=== PATIENT | male | born 1955 | race Caucasian/White ===

== ENCOUNTER 2017-11-15 16:34 | Inpatient (IN) | payer BC ==
[~2017-11-15] VITALS: Ht 180.3 cm; Wt 81.6 kg
[2017-11-15 16:51] VITALS: BP_SYST 142
[2017-11-15 17:36] LABS: BASOPHILS % (AUTO) 0.4 % (0.0-2.0); EOSINOPHILS % (AUTO) 0.2 % (0.0-4.0); HEMOGLOBIN 15.2 g/dL (14.0-18.0); LYMPHOCYTES # (AUTO) 1.9 K/uL (1.0-5.5); LYMPHOCYTES % (AUTO) 19.2 % (20.5-51.5); MEAN CORPUSCULAR HEMOGLOBIN 31 pg (27-31); MEAN CORPUSCULAR HGB CONC 34 % (32-36); MEAN CORPUSCULAR VOLUME 91 fL (79.0-98.0); MONOCYTES # (AUTO) 0.8 K/uL (0.0-1.0); MONOCYTES % (AUTO) 8.3 % (1.7-9.3); NEUTROPHILS # (AUTO) 6.9 K/uL (1.8-7.7); NEUTROPHILS % (AUTO) 71.9 % (40.0-70.0); PLATELET COUNT (AUTO) 279 K/uL (130-430); RED BLOOD CELL COUNT(AUTO) 4.97 MIL/uL (4.2-6.2); RED CELL DISTRIBUTION WIDTH 11.6 % (9.0-15.0); WHITE BLOOD COUNT (AUTO) 9.6 K/uL (4.8-10.8)
[2017-11-15 17:39] LABS: CALCIUM 9.7 mg/dL (8.4-11.0); CREATININE 0.87 mg/dL (0.55-1.30); POTASSIUM 3.2 mmol/L (3.5-5.1)
[2017-11-15 17:43] LABS: ALBUMIN 3.6 g/dL (3.4-4.8); PROTHROMBIN TIME 9.7 SECS (9.5-12.5); TOTAL BILIRUBIN 0.3 mg/dL (0.0-1.0)
[2017-11-15] MEDS ORDERED: fentaNYL CITRATE/PF 100 MCG/2 ML AMP ONE (18:53)
[2017-11-15] MEDS ORDERED: fentaNYL CITRATE/PF 100 MCG/2 ML AMP IVP ONE (19:00)
[2017-11-15 19:49] VITALS: BP_SYST 154
[2017-11-15 20:20] VITALS: BP_SYST 146
[2017-11-15] MEDS ORDERED: HYDR-1189 PO (21:07)
[2017-11-15] MEDS ORDERED: HYDR-4100 PO (21:07)
[2017-11-15] MEDS ORDERED: META800T11 PO (21:07)
[2017-11-15] MEDS ORDERED: HYDROcodone/ACETAMIN 10-325 MG TAB PO ONE (21:30)
[2017-11-15] MEDS ORDERED: POTASSIUM CHLORIDE 20 MEQ TAB.PRT.SR PO ONE (21:45)
[2017-11-15] MEDS ORDERED: MAG-AL HYDROX/SIMETH 30 ML UDC PO PRN (21:45)
[2017-11-15] MEDS ORDERED: ZOLPIDEM TARTRATE 5 MG TABLET PO PRN (21:45)
[2017-11-15] MEDS ORDERED: cloNIDine HCL 0.1 MG TABLET PO PRN (22:00)
[2017-11-16 00:09] VITALS: BP_SYST 145
[2017-11-16] MEDS: HYDROcodone/ACETAMIN 5-325 MG TAB (NORCO/ VICODIN) PO PRN ×2 (07:22→14:56)
[2017-11-16 07:42] LABS: ALBUMIN 3.3 g/dL (3.4-4.8); CREATININE 1.03 mg/dL (0.55-1.30); POTASSIUM 4.1 mmol/L (3.5-5.1); TOTAL BILIRUBIN 0.5 mg/dL (0.0-1.0)
[2017-11-16 08:24] LABS: BASOPHILS % (AUTO) 0.6 % (0.0-2.0); EOSINOPHILS # (AUTO) 0.1 K/uL (0.0-0.4); EOSINOPHILS % (AUTO) 0.7 % (0.0-4.0); HEMATOCRIT 47.9 % (36-54); HEMOGLOBIN 15.9 g/dL (14.0-18.0); LYMPHOCYTES # (AUTO) 2.1 K/uL (1.0-5.5); LYMPHOCYTES % (AUTO) 25.7 % (20.5-51.5); MEAN CORPUSCULAR HEMOGLOBIN 31 pg (27-31); MEAN CORPUSCULAR HGB CONC 33 % (32-36); MEAN CORPUSCULAR VOLUME 93 fL (79.0-98.0); MONOCYTES # (AUTO) 0.9 K/uL (0.0-1.0); MONOCYTES % (AUTO) 10.7 % (1.7-9.3); NEUTROPHILS # (AUTO) 5.2 K/uL (1.8-7.7); NEUTROPHILS % (AUTO) 62.3 % (40.0-70.0); PLATELET COUNT (AUTO) 267 K/uL (130-430); RED BLOOD CELL COUNT(AUTO) 5.18 MIL/uL (4.2-6.2); RED CELL DISTRIBUTION WIDTH 12.1 % (9.0-15.0); WHITE BLOOD COUNT (AUTO) 8.3 K/uL (4.8-10.8)
[2017-11-16] MEDS: BACLOFEN 10 MG TABLET PO SCH ×3 (08:31→20:04)
[2017-11-16] MEDS: FAMOTIDINE 20 MG TABLET PO SCH (08:31)
[2017-11-16 08:45] VITALS: BP_SYST 130
[2017-11-16] MEDS ORDERED: AMIODARONE HCL 200 MG TABLET PO ONE (10:30)
[2017-11-16] MEDS ORDERED: APIXABAN 2.5 MG TABLET PO ONE (11:00)
[2017-11-16] MEDS: HYDROcodone/ACETAMIN 10-325 MG TAB PO PRN ×2 (11:22→20:05)
[2017-11-16 12:29] VITALS: BP_SYST 127
[2017-11-16 13:42] LABS: CHOLESTEROL 265 mg/dL (<200); HDL CHOLESTEROL 93 mg/dL (>45); LDL CHOLESTEROL 139 mg/dL (<100); TRIGLYCERIDES 205 mg/dL (30-150)
[2017-11-16] MEDS ORDERED: ALPRAZolam 0.25 MG TABLET PO ONE ×2 (14:00→15:45)
[2017-11-16] MEDS: AMIODARONE HCL 200 MG TABLET PO SCH ×2 (14:54→21:28)
[2017-11-16] MEDS ORDERED: ALPRAZolam 0.25 MG TABLET ONE (15:47)
[2017-11-16 16:33] VITALS: BP_SYST 135
[2017-11-16 20:00] VITALS: BP_SYST 146
[2017-11-16] MEDS: APIXABAN 2.5 MG TABLET PO SCH (20:05)
[2017-11-17 01:20] VITALS: BP_SYST 117
[2017-11-17] MEDS: HYDROcodone/ACETAMIN 10-325 MG TAB PO PRN ×4 (02:20→20:06)
[2017-11-17] MEDS: AMIODARONE HCL 200 MG TABLET PO SCH ×3 (05:34→21:22)
[2017-11-17 08:04] VITALS: BP_SYST 128
[2017-11-17] MEDS: FAMOTIDINE 20 MG TABLET PO SCH (09:14)
[2017-11-17] MEDS: APIXABAN 2.5 MG TABLET PO SCH ×2 (09:14→20:06)
[2017-11-17] MEDS: BACLOFEN 10 MG TABLET PO SCH ×3 (09:14→20:06)
[2017-11-17 11:21] VITALS: BP_SYST 143
[2017-11-17 15:44] VITALS: BP_SYST 122
[2017-11-17 20:00] VITALS: BP_SYST 141
[2017-11-17] MEDS ORDERED: DOCUSATE SODIUM 100 MG CAPSULE PO ONE (21:15)
[2017-11-18 00:25] VITALS: BP_SYST 96
[2017-11-18] MEDS: AMIODARONE HCL 200 MG TABLET PO SCH ×2 (05:09→13:52)
[2017-11-18] MEDS: HYDROcodone/ACETAMIN 10-325 MG TAB PO PRN (05:10)
[2017-11-18 07:51] VITALS: BP_SYST 130
[2017-11-18] MEDS: APIXABAN 2.5 MG TABLET PO SCH (08:43)
[2017-11-18] MEDS: FAMOTIDINE 20 MG TABLET PO SCH (08:43)
[2017-11-18] MEDS: BACLOFEN 10 MG TABLET PO SCH ×2 (08:43→16:01)
[2017-11-18 12:23] VITALS: BP_SYST 122
[2017-11-18 16:09] VITALS: BP_SYST 122
[2017-11-18 16:18] VITALS: BP_SYST 136
== END 2017-11-18 16:35 | disposition home or self-care (01) | DRG 312 ==
LOC: SED 16:34 → STU 19:07
PROVIDERS: ADMIT Internal Medicine; ATTEND Internal Medicine
PROC: 0HQ1XZZ Repair Face Skin, External Approach (ICD-10-PCS; principal; 2017-11-15)
DX: R55 Syncope and collapse (principal); S01.112A Laceration without foreign body of left eyelid and periocular area, initial encounter; I48.91 Unspecified atrial fibrillation; E87.6 Hypokalemia; M89.8X8 Other specified disorders of bone, other site; G89.29 Other chronic pain; W18.39XA Other fall on same level, initial encounter; M47.812 Spondylosis without myelopathy or radiculopathy, cervical region; Y93.89 Activity, other specified; Y92.091 Bathroom in other non-institutional residence as the place of occurrence of the external cause; Y99.8 Other external cause status; Z87.442 Personal history of urinary calculi
CPT/HCPCS: 36415; 70450-TC; 71045; 71250-TC; 80053; 80061; 82550-TC; 83735-TC; 83880; 84443-TC; 84484; 85025; 85610-TC; 85730-TC; 93005; 93306; 93880; 96374; 99285; J3010